=== PATIENT | male | born 1965 | race Caucasian/White ===

== ENCOUNTER 2025-03-01 13:34 | Observation (INO) ==
--- NOTE | 2025-03-01 13:45 | Emergency Department Note ---
Impression & Plan Hypoglycemia, Hypomagnesemia, Lung mass ED Provider Note NAME: GE GORMAN AGE: 59 SEX: M : 1965 ARRIVES VIA: Ambulance INFORMANT: Patient, ED PROVIDER(S): Ge Bell DO CHIEF COMPLAINT: Hypoglycemia HPI: The patient is a 59-year-old male who presented to the emergency department for an evaluation of hyperglycemia. The patient is currently residing at [facility] for alcohol rehab. The patient had an episode of low blood sugar. He does take insulin for his diabetes. The patient states that he has been having changes to his insulin orders as well as his metformin. The patient states he has been eating is normally. He was given oral glucose at the rehab facility. Blood sugar was improved. The patient significantly improved his symptoms but was still sent to the emergency department for further evaluation. The patient denies having any chest pain or difficulty breathing. He denies having any GI bleeding. ROS: See above HPI for pertinent positives & negatives. A total of 10 systems reviewed and were otherwise negative. PAST MEDICAL HISTORY: See Below PAST SURGICAL HISTORY: See Below FAMILY HISTORY: See Below SOCIAL HISTORY: See Below HOME MEDICATIONS: See Below ALLERGIES: See Below VITALS: See Below PHYSICAL EXAMINATION: GENERAL: Patient is awake alert in no acute distress patient is resting comfortably and showing no signs of anxiety EYES: The conjunctivae are clear. The pupils are round and reactive. EARS, NOSE, MOUTH AND THROAT: The nose is without any evidence of any deformity. NECK: The neck is nontender and supple. RESPIRATORY: Normal respiratory effort is noted there is no evidence of wheezing rhonchi or rales CARDIOVASCULAR: Regular rate and rhythm noted there no murmurs rubs or gallops normal S1 normal S2. GASTROINTESTINAL: The abdomen is soft. Abdomen is nontender. MUSCULOSKELETAL/EXTREMITIES: There is no evidence of gross deformity full range of motion is noted in the hips and shoulders. SKIN: There is no obvious evidence of any rash. There are no petechiae, pallor or cyanosis noted. NEUROLOGIC: Patient is awake alert and oriented x3 MEDICAL DECISION MAKING: The patient is a 59-year-old male who presented to the emergency department for an evaluation of low blood sugar. The patient was found of low blood sugar and [facility]. He does have a history of insulin-dependent diabetes. The patient was sent to the emergency ferment for further evaluation. The patient was fed a meal in the emergency department. He was reevaluated multiple times. I discussed the patient's laboratory and radiographic studies with him. Ultimately he was found to have normal mentation. He was found to have an elevated blood sugar on reevaluation which I feel is good given his recent hypoglycemia. He was also found to have a pulmonary abnormality on chest x-ray. After discussion with the radiologist CAT scan of the chest was ordered for further evaluation. The CT read was still pending at change of shift. Patient was signed out to Dr. Peres at change of shift. I do feel the patient would likely be a good candidate for outpatient management of this nodule. He denies any risk factors for tuberculosis or history of tuberculosis. He said no hemoptysis or pulmonary issues. He does have a history of tobacco use. Triage Nursing notes reviewed. Prior medical records reviewed Vital Signs: reviewed and remarkable for no significant abnormalities Differential diagnosis: Infection, dehydration, metabolic abnormality, hypo/hyperglycemia, electrolyte disturbance, anemia, hypoxia, cardiac sources, intracerebral event, toxicologic, neurologic, as well as other pathologies. ER treatment provided: See below Diagnostics interpreted by me: ECG: EKG was obtained in the emergency department. My interpretation is normal sinus rhythm at 92 bpm. There is no ectopy. There is no acute ST segment abnormalities noted. QTc was 450 ms. Cardiac Monitoring: An order was placed for continuous cardiac monitoring. The monitor shows a rate of 97 bpm with sinus rhythm. Laboratory studies: As stated above and show below. Imaging studies: See below. Radiographic imaging was reviewed by myself Consultation(s): none Past Med/Surg History Problem List (Updated 03/01/25 @ 14:58 by Ge Bell DO) Lung mass (Acute) Hypomagnesemia (Acute) Hypoglycemia (Acute) Medical History Alcohol abuse Diabetes Social History Smoking Status: Former smoker Feels Safe at Home: Yes Results & Data (ED) Vital Signs Vital Signs - 24 hr 03/01/25 13:24 03/01/25 13:24 03/01/25 13:40 Temperature 37.0 C Temperature Source Oral Pulse Rate 97 H 99 H Respiratory Rate 20 Blood Pressure 115/75 Blood Pressure Mean 88 Pulse Oximetry 94 Oxygen Delivery Method Room Air Sepsis Recent Fever Within 48 Hours No Sepsis New/Unexplained Change in Mental Status No Sepsis Action Taken by Nursing No Action Required 03/01/25 14:00 03/01/25 14:07 Temperature Temperature Source Pulse Rate 97 H Respiratory Rate 22 Blood Pressure 131/67 Blood Pressure Mean 97 Pulse Oximetry 94 95 Oxygen Delivery Method Room Air Sepsis Recent Fever Within 48 Hours Sepsis New/Unexplained Change in Mental Status Sepsis Action Taken by Long Term Medications Current Medication List: was personally reviewed by me Laboratory Data Attestation: I reviewed the patient's lab results. 03/01/25 13:47 03/01/25 13:47 Lab Results 03/01/25 03/01/25 03/01/25 Range/Units 13:39 13:47 14:58 WBC 6.92 (4.8-10.8) K/ul RBC 4.07 L (4.70-6.10) M/uL Hgb 12.7 L (14.0-18.0) g/dl Hct 38.1 L (42.0-52.0) % MCV 93.6 (80.0-100.0) fL MCH 31.2 (25.0-34.0) pg MCHC 33.3 (32.0-36.0) g/dL RDW Std Deviation 45.8 (36.4-46.3) fL RDW Coeff of Waqas 13.2 (11.5-14.5) % Plt Count 180 (130-400) K/uL MPV 11.4 (9.4-12.4) fL Immature Gran % (Auto) 0.7 % Neut % (Auto) 67.6 % Lymph % (Auto) 19.1 % Weber % (Auto) 7.5 % Eos % (Auto) 4.5 % Baso % (Auto) 0.6 % Neut # (Auto) 4.68 (1.40-6.50) K/uL Lymph # (Auto) 1.32 (1.20-3.40) K/uL Weber # (Auto) 0.52 (0.11-0.59) K/uL Eos # (Auto) 0.31 (0.00-0.50) K/uL Baso # (Auto) 0.04 (0.00-0.20) K/uL Immature Gran # (Auto) 0.05 (0.01-0.20) K/uL Sodium 134 L (136-145) mmol/L Potassium 4.7 (3.5-5.1) mmol/L Chloride 103 (98-107) mmol/L Carbon Dioxide 22 (21-32) mmol/L Anion Gap 9 (3-11) BUN 14 (6-23) mg/dl Creatinine 1.21 (0.6-1.4) mg/dl Est Cr Clr Drug Dosing 64.4 ml/min eGFR 69.40 BUN/Creatinine Ratio 11.6 (10-20) Glucose 287 H (70-99(Fasting)) mg/dl POC Glucose 291 H (70-99) mg/dl Calcium 9.2 (8.6-10.3) mg/dl Magnesium 1.5 L (1.7-2.4) mg/dl Total Bilirubin 0.3 (0.2-1.0) mg/dl AST 20 (13-39) U/L ALT 21 (7-52) U/L Alkaline Phosphatase 64 (34-104) U/L Total Creatine Kinase 133 (30-223) U/L Troponin I High Sens 3.0 (0-20) pg/ml Total Protein 6.8 (6.0-8.3) gm/dl Albumin 4.2 (3.4-5.0) gm/dl Globulin 2.6 (2.5-4.0) gm/dl Albumin/Globulin Ratio 1.6 (0.9-2) TSH 1.383 (0.300-4.500) uIu/ml Urine Color Yellow Urine Appearance Clear (Clear) Urine pH 5.5 (4.5-7.5) Ur Specific [place] 1.020 (1.000-1.030) Urine Protein Negative (Negative) Urine Glucose (UA) 3+ H (Negative) Urine Ketones Negative (Negative) Urine Blood Negative (Negative) Urine Nitrite Negative (Negative) Urine Bilirubin Negative (Negative) Urine Urobilinogen Negative (Negative) Ur Leukocyte Esterase Negative (Negative) Urine Comment Administered Medications Discontinued Medications Ioversol (Optiray 320 100ml) 90 ml IV ONCE ONE Stop: 03/01/25 15:11 Last Admin: 03/01/25 15:11 Dose: 90 ml Documented By: MCKAYLA Magnesium Oxide (Magnesium Oxide 400 Mg Tab) 400 mg PO ONE ONE Stop: 03/01/25 14:39 Last Admin: 03/01/25 14:52 Dose: 400 mg Documented By: KENYON Imaging Data Attestation: I personally reviewed and interpreted this imaging study as follows: My Impression: 1 view chest x-ray was obtained in the emergency department. My interpretation is no free air or definite infiltrate, final report below. Radiologist's Impression: Chest X-Ray 03/01/25 13:40 XR chest 1V portable CLINICAL HISTORY: weakness COMPARISON STUDY: No previous studies for comparison. FINDINGS: Lung volumes are normal. No pneumothorax or pleural effusion is present. There is no evidence for pulmonary edema. Linear left basilar density favors atelectasis. Asymmetric right apical subpleural opacity is present. Cardiac size is normal. Mediastinal contours are normal. Right humeral internal fixation is partially imaged. IMPRESSION: Asymmetric right apical subpleural opacity. This may represent pneumonia or scarring. However, a chest CT is recommended to exclude a pulmonary lesion. ACT 112: Positive. There are findings on this exam that require communication between the performing entity and the patient following Patient Test Result Information Act ([place] Act 112) guidelines. Electronically signed by: Chris Thomas M.D. 03/01/2025 2:06 PM Discharge Plan Visit Data Chief Complaint: Hypoglycemia ED Provider: Ge Bell Discharge Problem: Hypoglycemia, Hypomagnesemia, Lung mass Patient Disposition: Still a Patient Condition: Good Discharge Instructions [place]/Other Patient Handouts: ED HYPOGLYCEMIA Insulin Rxn Activity Restrictions/Additional Instructions: Continue all medications as prescribed. Continue to eat all your meals. Continue to keep snacks with you in case you feel the symptoms of low blood sugar coming on. Be sure to follow-up with your family doctor about the findings on the CAT scan today. You may require further pulmonary workup or possibly a biopsy to further evaluate the cause your symptoms. Return immediately if symptoms change worsen or the need arises. Forms Stand Alone Forms: [facility], Important Visit Information Referrals Referrals: PCP,NO [Physician] -
[2025-03-01 14:02] LABS: Hematocrit (blood only) 38.1 % (42.0-52.0); Hemoglobin 12.7 g/dl (14.0-18.0); Immature Granulocytes # (auto) 0.05 K/uL (0.01-0.20); Immature Granulocytes % (auto) 0.7 %; Mean Corpuscular Hemoglobin 31.2 pg (25.0-34.0); Mean Corpuscular Volume 93.6 fL (80.0-100.0); Platelet Count 180 K/uL (130-400); RDW Standard Deviation 45.8 fL (36.4-46.3); Red Blood Count 4.07 M/uL (4.70-6.10); White Blood Count 6.92 K/ul (4.8-10.8)
--- NOTE | 2025-03-01 14:08 | XRay Report ---
XR chest 1V portable CLINICAL HISTORY: weakness COMPARISON STUDY: No previous studies for comparison. FINDINGS: Lung volumes are normal. No pneumothorax or pleural effusion is present. There is no eviden ce for pulmonary edema. Linear left basilar density favors atelectasis. Asymmetric right apical subpl eural opacity is present. Cardiac size is normal. Mediastinal contours are normal. Right humeral inte rnal fixation is partially imaged. IMPRESSION: Asymmetric right apical subpleural opacity. This may represent pneumonia or scarring. Ho wever, a chest CT is recommended to exclude a pulmonary lesion. ACT 112: Positive. There are findings on this exam that require communication between the performing entity and the patient following Patient Test Result Information Act ([place] Act 112) guidelines. Electronically signed by: Chris Thomas M.D. 03/01/2025 2:06 PM
[2025-03-01 14:26] LABS: Alanine Aminotransferase 21.0 U/L (7-52); Albumin Globulin Ratio 1.6 (0.9-2); Albumin Level 4.2 gm/dl (3.4-5.0); Alkaline Phosphatase 64.0 U/L (34-104); Anion Gap 9.0 (3-11); Bilirubin,Total 0.3 mg/dl (0.2-1.0); Blood Urea Nitrogen 14.0 mg/dl (6-23); Calcium 9.2 mg/dl (8.6-10.3); Carbon Dioxide 22.0 mmol/L (21-32); Chloride 103.0 mmol/L (98-107); Creatine Kinase 133.0 U/L (30-223); Creatinine Clr Calc Pharmacy 64.4 ml/min; Globulin 2.6 gm/dl (2.5-4.0); Glucose 287.0 mg/dl (70-99(Fasting)); Magnesium 1.5 mg/dl (1.7-2.4); Potassium 4.7 mmol/L (3.5-5.1); Sodium 134.0 mmol/L (136-145); Total Protein 6.8 gm/dl (6.0-8.3)
[2025-03-01 14:42] LABS: Thyroid Stimulating Hormone 1.383 uIu/ml (0.300-4.500)
[2025-03-01] MEDS: MAGNESIUM OXIDE 400 MG TAB PO ONE (14:52)
[2025-03-01] MEDS: OPTIRAY 320 100ml IV ONE (15:11)
[2025-03-01 15:21] LABS: Appearance Urine Clear (Clear); Glucose Urine UA 3+ (Negative)
--- NOTE | 2025-03-01 15:59 | Emergency Department Note ---
ED Visit Note Patient is a 59-year-old male who sent over by [facility] for confusion. He was found to be hypoglycemic and have a chest x-ray which has had an abnormality in the right upper lobe. CT was recommended. CT was obtained and pending upon signout. Cavitary lesions and concern for aspiration after discussion with pulmonology. Recommended admission and IV antibiotics. Discussed case with the hospitalist for further evaluation management treatment. Patient was extremely upset and cursing as he wanted to go back to [facility]. He did not want to stay. [facility] cannot take him back without having him evaluated by pulmonology. Patient was agreeable to admission following this. .
--- NOTE | 2025-03-01 16:26 | CT Scan Report ---
Exam: CT chest diagnostic with contrast. Reason for exam: Right upper lobe mass. Previous studies: None. FINDINGS: No previous studies are available for comparison. There is a cavitating peripheral process in the apical segment right upper lobe extending near to the right lateral and posterior pleural surface. The multilocular cavitation is present centrally in this lesion. The broadest diameter is at the pleural base measuring approximately 5.1 cm diameter. Underlying emphysematous COPD is present. Prquypfo-fw-gugkzu linear atelectasis/fibrosis are seen in both lower lobes. No active pleural effusion. Pneumothorax is seen. No suspicious abnormal hilar or mediastinal mass or abnormal adenopathy is seen. No significant aneurysm or dissection seen. Mild coronary artery calcifications are present. No acute bony process is seen. IMPRESSION: 1. Suspicious multilocular cavitating pleural-based process in the right lung apex. Unfortunately no previous studies available to evaluate the stability of this lesion. It could indicate cavitary malignant neoplasm. The possibility of cavitating granulomatous disease/tuberculosis lung disease. He is considered as well. Inflammatory or autoimmune cavitating disease is considered but is felt less likely. 2. Definitive diagnosis with pulmonary medicine follow-up and consideration for biopsy is recommended. PET/CT will also be anticoagulated to evaluate the metabolic activity within the lesion. 3. Emphysematous COPD. Electronically signed by Serafin Umanzor 03-01-2025 4:25 PM
[2025-03-01] MEDS ORDERED: VANCOMYCIN CONSULT ACTIVE PRN (17:20)
[2025-03-01] MEDS: NICOTINE 21 MG/24 HR TDSY TD SCH (18:11)
[2025-03-01] MEDS: PIPERACILLIN/TAZOBACTAM 4.5 GM/100 ML BAG IV ONE (18:12)
[2025-03-01] MEDS: VANCOMYCIN HCL 1,500 MG in SODIUM CHLORIDE 0.9% 500 ML IV ONE (18:46)
[2025-03-01] MEDS ORDERED: GLUCOSE 10 TAB/TUBE PO PRN (18:50)
[2025-03-01] MEDS ORDERED: CARBOHYDRATES FOR HYPOGLYCEMIA PO PRN (18:50)
[2025-03-01] MEDS ORDERED: DEXTROSE 50% 50 ML SYRINGE IV PRN (18:50)
[2025-03-01] MEDS ORDERED: ONDANSETRON INJ 2 MG/ML 2 ML VIAL IV PRN (18:50)
[2025-03-01] MEDS ORDERED: PHARMACY GLYCEMIC MGMT CONSULT PRN (18:50)
[2025-03-01] MEDS ORDERED: MAGNESIUM HYDROXIDE SUSP 30 ML UDC PO PRN (18:50)
[2025-03-01] MEDS ORDERED: GLUCAGON FOR INJ 1 MG VIAL SQ PRN (18:50)
[2025-03-01] MEDS ORDERED: POLYETHYLENE (MIRALAX) 17 GM PACK PO PRN (18:50)
[2025-03-01] MEDS ORDERED: ALUMINUM/MAGNESIUM SUSP 30 ML UDC PO PRN (18:50)
[2025-03-01] MEDS ORDERED: GLUCOSE 40% GEL 15 GM TUBE PO PRN (18:50)
[2025-03-01] MEDS ORDERED: ACETAMINOPHEN 325 MG TAB PO PRN (18:50)
--- NOTE | 2025-03-01 19:01 | History & Physical Report ---
Date of Service March 01, 2025 Assessment & Plan (1) Lung mass: Plan Possible aspiration pneumonia Right lung fracture cavitary lesion, rule out malignancy Patient reports night sweats for a long time, denies fever/increasing cough or sputum production. ED physician discussed with pulmonology, plan for admission and IV antibiotic. Admitting CT chest reviewed. Continue with Zosyn and vancomycin, pulmonology consult placed. Hypomagnesemia: Admitting magnesium of 1.5, replete. Magnesium levels in AM. Hypoglycemia: Patient noted to be hypoglycemic associated with weakness and sickness prior to arrival, sliding scale insulin while in hospital, A1c in a.m., glycemic pharmacy consult. Hypoglycemia now resolved. Tobacco abuse: Nicotine patch, patient counseled regarding tobacco cessation. He states he will contemplate about it. Other chronic medical conditions: Anxiety, GERD, T2DM: continue with/resume home meds as and when able. DVT prophylaxis: Heparin subcu Full History of Present Illness Chief Complaint: Hypoglycemia Primary Care Provider: [facility] 59-year-old man with PMH of hypoglycemia, T2DM, anxiety, chronic pancreatitis, GERD presents to the ED from [facility] due to altered mentation and hypoglycemia episodes at [facility]. Patient's blood glucose was 45, patient was noted to be shaky and weak and given orange juice and sugar tablets and patient started to slowly improve. Patient reports he was back to his baseline mentation by the time he reached to the ED. In the ED he got chest x-ray which showed abnormal right upper lung finding and hence he underwent CT scan of the lung which showed multilocular cavitary lesion in the right lung apex ?malignancy. ED physician spoke with pulmonology who recommended admission and treatment in the line of aspiration pneumonia. Patient denies fever/sore throat/chest pain/palpitation/belly pain/nausea/vomiting/diarrhea/pain or burning while passing urine. Patient reports gaining weight since he has quit drinking about 6 weeks ago. He has been in alcoholic rehab at [facility] since 6 weeks. Patient reports having night sweats for a long time now. Patient reports chronic cough at his baseline with clear mucus, denies frequency or consistency changes. Patient reports smoking 1 packs a day, agrees to nicotine patch. Denies alcohol intake since last 6 weeks, denies recreational drug use. Medications reviewed with the patient at bedside. Plan of care discussed with the patient in detail, he voiced understanding. Full code Allergies Allergy/AdvReac Type Severity Reaction Status Date / Time shellfish derived Allergy Severe Swelling Unverified 03/01/25 16:19 of Lip/Tongue/Throat Home Medications Medication Instructions Recorded Confirmed Type buspirone 15 mg tablet 15 mg PO TID 03/01/25 03/01/25 History clonidine HCl 0.1 mg tablet 0.1 mg PO TID PRN Anxiety 03/01/25 03/01/25 History fluticasone fur. 100 mcg-umeclid 1 inh inhalation DAILY 03/01/25 03/01/25 History 62.5 mcg-vilant 25 mcg inhalat.powder (Trelegy Ellipta) gabapentin 300 mg capsule 300 mg PO TID 03/01/25 03/01/25 History hydroxyzine pamoate 50 mg capsule 50 mg PO TID PRN Anxiety 03/01/25 03/01/25 History insulin aspart U-100 100 unit/mL 1 sliding scale dose subcut 03/01/25 03/01/25 History subcutaneous solution (Novolog TIDWMEAL U-100 Insulin aspart) insulin glargine 100 unit/mL 8 unit subcut BID 03/01/25 03/01/25 History subcutaneous solution (Lantus U-100 Insulin) glykwl-bdufbakf-kwzgepe 1 cap PO QID 03/01/25 03/01/25 History 36,000-114,000-180,000 unit capsule,delay rel (Creon) metformin 500 mg tablet,extended 500 mg PO TID 03/01/25 03/01/25 History release 24 hr multivitamin 1 tab PO DAILY 03/01/25 03/01/25 History omeprazole 40 mg capsule,delayed 40 mg PO DAILY 03/01/25 03/01/25 History release quetiapine 50 mg tablet (Seroquel) 50 mg PO HS 03/01/25 03/01/25 History sertraline 100 mg tablet 100 mg PO DAILY 03/01/25 03/01/25 History Past Med/Surg History Problem List (Updated 03/01/25 @ 14:58 by Jr Bell DO) Lung mass (Acute) Hypomagnesemia (Acute) Hypoglycemia (Acute) Medical History Alcohol abuse Diabetes Social History Smoking Status: Former smoker Feels Safe at Home: Yes Review of Systems Review of Systems: Negative otherwise mentioned in HPI. Physical Exam Physical Exam: GENERAL: Alert and oriented x3. NAD, on RA. HEENT: No pallor, no icterus. Pupils equal, round and reactive to light. Oral mucosa moist. NECK: No JVD, no neck masses. HEART: S1 and S2 heard. Regular rate and rhythm. No murmur, no gallop. RESPIRATORY SYSTEM: Normal AP diameter. No accessory muscle use. No wheezing, no crackles. ABDOMEN: Soft, bowel sounds present, nontender, no distention. CENTRAL NERVOUS SYSTEM: No facial droop. Speech is clear. Obeys simple commands. Moves extremities. EXTREMITIES: No edema, no erythema seen. Results & Data Results & Data Vital Signs (Past 12 Hours) Vital Signs Temp Pulse Pulse Resp BP BP Pulse Ox 03/01/25 18:20 88 16 150/91 H 93 03/01/25 17:00 82 18 121/86 92 03/01/25 16:27 83 20 121/79 93 03/01/25 14:07 95 03/01/25 14:00 97 H 22 131/67 94 03/01/25 13:40 99 H 03/01/25 13:24 03/01/25 13:24 37.0 C 97 H 20 115/75 94 O2 Del Method 03/01/25 18:20 Room Air 03/01/25 17:00 03/01/25 16:27 Room Air 03/01/25 14:07 Room Air 03/01/25 14:00 03/01/25 13:40 03/01/25 13:24 Room Air 03/01/25 13:24
[2025-03-01] MEDS: MAGNESIUM SULFATE / D5W 1 GM/100 ML BAG IV SCH (22:11)
[2025-03-01] MEDS: NICOTINE POLACRILEX 2 MG GUM MT PRN (22:37)
[2025-03-01] MEDS: LANTUS PER UNIT CHARGE SQ SCH (22:37)
[2025-03-01] MEDS: INSULIN ASPART PER UNIT CHARGE SC SCH (22:37)
[2025-03-01] MEDS: GABAPENTIN 300 MG CAP PO SCH (22:57)
[2025-03-01] MEDS: busPIRone 15 MG TAB PO SCH (22:57)
[2025-03-01] MEDS: PIPERACILLIN/TAZOBACTAM 4.5 GM/100 ML BAG IV SCH (22:57)
[2025-03-01] MEDS: HEPARIN SOD 5,000 UNIT/0.5 ML VIAL SQ SCH (23:30)
--- NOTE | 2025-03-02 01:20 | Pharmacy Report ---
Pharmacy PK ABX Note - Date of Service March 02, 2025 - Assessment and Plan Assessment 59 year old M receiving vancomycin/Zosyn for treatment of CAP-possible aspiration. Pertinent microbiologic data includes: MRSA Nasal Swab pending. Day # 1 of antimicrobial therapy. Plan Vancomycin * Loading dose: 1500 mg IV x 1 * Maintenance dose: 750 mg IV every 12 hours * Regimen is predicted to achieve target AUC/KATHIE of 400-600 mg/L.hr * Trough level ordered for: 03/03/25 @ 0430 Pharmacy will continue to follow and will adjust dose/frequency as necessary. Thank you. Pharmacy has transitioned to AUC monitoring for vancomycin. AUC/KATHIE is the preferred PK/PD target and is associated with decreased risk of nephrotoxicity compared to traditional trough targets.
[2025-03-02] MEDS: VANCOMYCIN 750 MG in SODIUM CHLORIDE 0.9% 250 ML IV SCH ×2 (05:20→13:09)
[2025-03-02 07:19] LABS: Hematocrit (blood only) 39.6 % (42.0-52.0); Hemoglobin 13.9 g/dl (14.0-18.0); Mean Corpuscular Hemoglobin 32.4 pg (25.0-34.0); Mean Corpuscular Volume 92.3 fL (80.0-100.0); Platelet Count 171 K/uL (130-400); RDW Standard Deviation 44.7 fL (36.4-46.3); Red Blood Count 4.29 M/uL (4.70-6.10); White Blood Count 7.48 K/ul (4.8-10.8)
[2025-03-02] MEDS: ADVANCED PROBIOTIC 625 MG CAPSULE PO SCH (07:29)
[2025-03-02] MEDS: PANCREAZE (LIPASE 16,800U) CAP PO SCH (07:29)
[2025-03-02] MEDS: SERTRALINE HCL 100 MG TABLET PO SCH (07:30)
[2025-03-02] MEDS: UMECLIDINIUM/VILANTEROL 62.5/25MCG 7 PUFFS/INHALER INH SCH (07:30)
[2025-03-02] MEDS: FLUTICASONE FUROATE 100MCG 14 PUFFS/INHALER INH SCH (07:31)
[2025-03-02] MEDS: MULTIVITAMIN TAB PO SCH (07:31)
[2025-03-02] MEDS: REMOVE NICODERM PATCH SCH (07:39)
[2025-03-02 07:43] LABS: Anion Gap 7 (3-11); Blood Urea Nitrogen 11 mg/dl (6-23); Calcium 8.8 mg/dl (8.6-10.3); Carbon Dioxide 26 mmol/L (21-32); Chloride 105 mmol/L (98-107); Creatinine Clr Calc Pharmacy 96.2 ml/min; Glucose 166 mg/dl (70-99(Fasting)); Magnesium 2.0 mg/dl (1.7-2.4); Potassium 4.0 mmol/L (3.5-5.1); Sodium 138 mmol/L (136-145)
[2025-03-02] MEDS ORDERED: NON-FORMULARY MEDICATION (Fluticasone-Umeclidin-Vilanter [Trelegy Ellipta] 100-62.5-25 mcg INH SCH (09:00)
[2025-03-02 09:10] LABS: Hemoglobin A1C 9.7 % (4.5-5.6)
--- NOTE | 2025-03-02 10:08 | Hospitalist Progress Note ---
Date of Service March 02, 2025 Assessment & Plan (1) Lung mass: Plan Possible aspiration pneumonia Right lung fracture cavitary lesion, rule out malignancy Patient reports night sweats for a long time, denies fever/increasing cough or sputum production. ED physician discussed with pulmonology, plan for admission and IV antibiotic. Admitting CT chest reviewed. Continue with Zosyn and vancomycin, pulmonology consult placed. 03/02 afebrile, on room air continue IV Zosyn, vancomycin Awaiting evaluation by pulmonology service Hypomagnesemia: Admitting magnesium of 1.5, replete. Magnesium levels in AM. Hypoglycemia: Patient noted to be hypoglycemic associated with weakness and sickness prior to arrival, sliding scale insulin while in hospital, A1c in a.m., glycemic pharmacy consult. Hypoglycemia now resolved. 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 He states he will contemplate about it. Other chronic medical conditions: Anxiety, GERD, T2DM: continue with/resume home meds as and when able. DVT prophylaxis: Heparin subcu Full Disposition resident of [facility] rehab Admission and Anticipated Discharge Date Admission Date: March 01, 2025 Subjective seen resting in bed, comfortable, not in distress States he feels fine overall has occasional cough with clear sputum no chest pain, shortness of breath No other new symptoms Review of Systems Review of Systems: all noted and negative except for above Physical Exam Physical Exam: General- oriented x 3, not in distress, speaks in sentences with no effort or accessory muscle use Eyes- anicteric Neck- no JVD Lungs- clear breath sounds bilaterally, no rales/wheezes Heart- normal rate, regular rhythm; no murmurs Abdomen- normal bowel sounds, nondistended, soft, nontender Extremities- no pretibial edema, no calf tenderness Neuro- alert, oriented x 3; no gross focal neurologic deficits Skin- warm & dry Results & Data Results & Data Vital Signs (Past 12 Hours) Vital Signs Temp Pulse Resp BP Pulse Ox O2 Del Method 03/02/25 08:00 36.8 C 92 H 16 109/69 91 Room Air 03/02/25 03:08 36.7 C 69 16 108/68 94 Room Air 03/01/25 22:16 36.8 C 75 18 124/73 94 Room Air all noted and reviewed including below
--- NOTE | 2025-03-02 12:26 | Electrocardiogram Report ---
Test Reason : Blood Pressure : */* mmHG Vent. Rate : 92 BPM Atrial Rate : 92 BPM P-R Int : 144 ms QRS Dur : 70 ms QT Int : 336 ms P-R-T Axes : -6 -11 -13 degrees QTcB Int : 415 ms Normal sinus rhythm Inferior infarct , age undetermined Abnormal ECG No previous ECGs available Confirmed by Jr Funk ([id number]) on 03/02/2025 12:25:36 PM Referred By: Confirmed By: Jr Funk
--- NOTE | 2025-03-02 12:30 | Pulmonary Consultation ---
Date of Consultation March 02, 2025 Assessment & Plan (1) Cavitary lesion of lung: (2) COPD (chronic obstructive pulmonary disease) with emphysema: (3) Tobacco abuse: Plan Patient is a 59-year-old male with a history of extensive tobacco use (80-[id number]-kicy history), COPD with emphysema on Trelegy and albuterol inhalers at home, history of incarceration in 2020 for 6 months, alcohol abuse in remission. The patient presented to the hospital with hypoglycemia. X-ray of the chest showed a right apical density for which a CT of the chest was obtained. CT showed a right apical cavitary lesion for which pulmonary has been consulted. Problem list: Right apical cavitary lung lesion COPD/emphysema without acute exacerbation Heavy tobacco use history Recommendation/plan: I reviewed the CT imaging. Given the patient's history and location of the lesion TB has to be ruled out. TB Gold has been ordered, will hopefully return by tomorrow. The lesion could represent TB versus malignancy. I discussed the imaging findings with the patient. He is interested in pursuing repeat imaging versus bronchoscopy with biopsy if TB is ruled out. He does not want to stay in the hospital too long however as he is finishing up his rehab currently. He is willing to follow-up in clinic however. The patient denies any acute respiratory symptoms, denies wheezing or phlegm production. Denies fevers or chills. Besides the right apical lesion and some mild GGO's in the lower lung zones I do not see any other focal consolidations. Does not seem to be in COPD exacerbation. Inflammatory markers are low, patient is not experiencing any respiratory symptoms, can likely stop antibiotics. Recommend nicotine counseling and supplementation. Continue airborne precautions for now. Thank you for this consult. Will continue to follow along with you. History of Present Illness Reason for Consultation: Right apex cavitary lesion Requesting Physician: Alejo Merritt MD Attending Physician: Arthur Kelly MD History of Present Illness Patient is a 59-year-old male who presented to the emergency department on 03/01/2025 for evaluation of hypoglycemia. His past medical history is significant for alcohol use disorder for which he is in a sober living facility currently, COPD, active tobacco use (19-[id number]-[id number] history), type 2 diabetes on insulin, history of hepatitis B and previous incarceration in 2020. In the ER a chest x-ray was obtained which showed a right apical subpleural opacity and a CT of the chest was recommended. CT chest without contrast showed significant emphysema, a suspicious multiloculated cavitary pleural-based process in the right lung apex. The patient was admitted to the [facility] and placed on airborne precautions. Pulmonary was consulted for the right apex cavitary lesion. On examining the patient he is resting comfortably on room air. He denies any respiratory symptoms. He endorses a history of COPD for which he uses a Trelegy and as needed albuterol inhaler at home. He actively smokes tobacco 1 pack/day. He has smoked since he is 13 years old. He denies any known history of TB exposure. He denies any international travel. He does endorse a 6-month incarceration in 2020 but he says he has had negative TB skin test since that time. He denies any immune deficiency or known HIV. Denies fevers, chills, night sweats, weight loss, phlegm production or hemoptysis. He says that he has been hospitalized in the past few years for pneumonia [place]. He has no recollection of having a previous pulmonary nodule. I reviewed the CT imaging. Unfortunately there are no previous images to refer to. There is significant emphysema, more prominent in the upper lobes. There is a cavitary lesion in the right apex. No other suspicious pulmonary lesions appreciated. Some GGO's with atelectasis in the bases. Allergies Allergy/AdvReac Type Severity Reaction Status Date / Time shellfish derived Allergy Severe Swelling Unverified 03/01/25 16:19 of Lip/Tongue/Throat Home Medications Medication Instructions Recorded Confirmed Type buspirone 15 mg tablet 15 mg PO TID 03/01/25 03/01/25 History clonidine HCl 0.1 mg tablet 0.1 mg PO TID PRN Anxiety 03/01/25 03/01/25 History fluticasone fur. 100 mcg-umeclid 1 inh inhalation DAILY 03/01/25 03/01/25 History 62.5 mcg-vilant 25 mcg inhalat.powder (Trelegy Ellipta) gabapentin 300 mg capsule 300 mg PO TID 03/01/25 03/01/25 History hydroxyzine pamoate 50 mg capsule 50 mg PO TID PRN Anxiety 03/01/25 03/01/25 History insulin aspart U-100 100 unit/mL 1 sliding scale dose subcut 03/01/25 03/01/25 History subcutaneous solution (Novolog TIDWMEAL U-100 Insulin aspart) insulin glargine 100 unit/mL 8 unit subcut BID 03/01/25 03/01/25 History subcutaneous solution (Lantus U-100 Insulin) fguxgq-itwqnlba-cznjnem 1 cap PO QID 03/01/25 03/01/25 History 36,000-114,000-180,000 unit capsule,delay rel (Creon) metformin 500 mg tablet,extended 500 mg PO TID 03/01/25 03/01/25 History release 24 hr multivitamin 1 tab PO DAILY 03/01/25 03/01/25 History omeprazole 40 mg capsule,delayed 40 mg PO DAILY 03/01/25 03/01/25 History release quetiapine 50 mg tablet (Seroquel) 50 mg PO HS 03/01/25 03/01/25 History sertraline 100 mg tablet 100 mg PO DAILY 03/01/25 03/01/25 History Patient History Medical History Alcohol abuse Diabetes Social History Smoking Status: Current every day smoker Tobacco Type: Cigarettes Cigarettes Per Day: 20; Second Hand Exposure: No; Do You Dip or Chew Tobacco: No; Tobacco Cessation Education Requested by Patient: No Hx Alcohol Use: Yes Alcohol type: beer Hx Substance Use: No Preferred Language: Greek Communication Ability: Effective Early Intervention School Psychologist Required: No Beliefs That Will Affect Care: None Current Living Situation: Rehab Current Living Situation Comment: rehab at [facility] Other Information That Helps Us Care for You: No Feels Safe at Home: Yes Safety Concerns: Feels Safe At This Time Assistive Devices: Denture - Upper Review of Systems Review of Systems: A 12 point review of systems was obtained in detail. Negative except as noted in HPI. Physical Exam Physical Exam: Physical examination: General: Well-appearing, well-nourished and not in acute distress. HEENT: Normocephalic, atraumatic. Extraocular movements intact. Sclera are nonicteric. No JVD appreciated. Skin: Warm and dry. No rashes appreciated. No jaundice appreciated. Multiple tattoos present. Cardiovascular: Heart is a regular rate and rhythm, no murmurs appreciated on my exam. No significant lower extremity edema. Lungs: Clear bilaterally, no wheezing appreciated. No crackles. Nontachypneic. Resting comfortably on room air. Abdomen: Nondistended, nontender to palpation. No masses appreciated. Musculoskeletal: Normal muscle mass and tone. No gross joint deformity abnormalities. No effusions appreciated. Neurologic: Awake and alert, oriented. CN II through XII are grossly intact. Speech is fluent. Nonfocal exam. Psychiatric: Appropriate cooperative during my exam. Results & Data Results & Data Vital Signs (Past 12 Hours) Vital Signs Temp Pulse Resp BP Pulse Ox O2 Del Method 03/02/25 11:06 36.8 C 74 18 114/71 93 Room Air 03/02/25 08:00 36.8 C 92 H 16 109/69 91 Room Air 03/02/25 03:08 36.7 C 69 16 108/68 94 Room Air [place] [address] IN/OBS CONSULT LVL 3,45M Patient Type New History Detailed Exam Detailed Medical Decision Making Moderate Complexity Diagnoses Cavitary lesion of lung J98.4 COPD (chronic obstructive pulmonary disease) with emphysema J43.9 Tobacco abuse Z72.0
--- NOTE | 2025-03-02 14:52 | Pharmacy Report ---
Pharmacy Glycemic Short Note 2 - Date of Service March 02, 2025 - Glycemic Short BSG Results (Last 24 hours): 03/01/25 03/01/25 03/02/25 20:32 22:04 06:44 Glucose 166 H POC Glucose 166 H 269 H 03/02/25 03/02/25 07:27 11:05 Glucose POC Glucose 164 H 208 H OUTPATIENT ANTIDIABETIC REGIMEN: * Lantus 8 units SQ BID * Novolog sliding scale TID with meal * metformin 500mg PO BID HbA1c: 9.7% on 03/02/25 ASSESSMENT: * Jr is a 59 year old male who presented to the ED due to altered mentation/hypoglycemia (BSG was reportedly 45mg/dL [employer]) and was incidentally found to have a cavitary lesion of the lung. Hypoglycemia resolved once the patient reached the ED and on arrival BSG was 291mg/dL. Pharmacy was consulted at that time for glycemic management. * A conservative insulin regimen was started last evening--Lantus 5 units SQ BID and a weight based bolus insulin regimen with a stress of ~2. * Fasting BSG was 164mg/dL this morning and alvarez to 208mg/dL at lunch. CR was tightened and Lantus was changed to a scale (0 or 5 units depending on BSG) BID to help ensure that he does not have another hypoglycemic episode. Will cautiously increase insulin doses if/as needed. PLAN FOR INPATIENT GLYCEMIC CONTROL: * Hold outpatient oral diabetes medications * Basal insulin * Lantus scale (0 or 5 units depending on BSG) SQ BID * Bolus insulin * NovoLog per scale ACHS or Q6hrs while NPO * Goal Range: Low 120 mg/dL - High 160 mg/dL * Correction Factor: 30 mg/dL/unit * Nutritional / Prandial insulin per carb ratio of 1 unit per 12 grams CHO consumed
[2025-03-02] MEDS: LANTUS PER UNIT CHARGE SC SCH (20:48)
[2025-03-03 04:14] VITALS: RESP 18
[2025-03-03 04:55] LABS: Creatinine Clr Calc Pharmacy 78.7 ml/min
[2025-03-03] MEDS: VANCOMYCIN LEVEL ONE (05:10)
[2025-03-03 11:38] VITALS: BP 116/74; PULSE 66; TEMP 97.7; O2SAT 95
--- NOTE | 2025-03-03 11:40 | Pulmonology Progress Note ---
Date of Service March 03, 2025 Assessment & Plan (1) Cavitary lesion of lung: (2) COPD (chronic obstructive pulmonary disease) with emphysema: (3) Tobacco abuse: Plan Patient is a 59-year-old male with a history of extensive tobacco use (69-wdqt-jpce history), COPD with emphysema on Trelegy and albuterol inhalers at home, history of incarceration in 2020 for 6 months, alcohol abuse in remission. The patient presented to the hospital with hypoglycemia. X-ray of the chest showed a right apical density for which a CT of the chest was obtained. CT showed a right apical cavitary lesion for which pulmonary has been consulted. Right apical cavitary lung lesion possibly TB v. malignancy -Given the patient's history and location of the lesion TB has to be ruled out. TB Gold negative and TB ruled out. -Skin ppd negative -Consider bronchoscopy if/when TB ruled out. Plan for repeat CT 4-6 weeks post discharge. -Discontinue airborne precautions. -On Zosyn and vancomycin. Patient asymptomatic and nontoxic appearing as well as low inflammatory markers can likely d/c antibiotics. COPD/emphysema without acute exacerbation -Does not seem to be in COPD exacerbation. Not bronchospastic. Heavy tobacco use history -Reiterated benefit of smoking cessation and resources offered. Thank you for allowing us to participate in this patients care. Please feel free to reach out with questions or concerns. 36 minutes is the time spent reviewing the chart, obtaining history, performing the physical exam, and updating the patient. Admission and Anticipated Discharge Date Admission Date: March 01, 2025 Subjective Patient feels his breathing is at baseline with occasional cough which produces white phlegm. On room air with SpO2 95% or above. TB Gold Quantiferon pending. Review of Systems 2 Review of Systems: All systems reviewed & are unremarkable except as noted in HPI & below Physical Exam 2 Physical Exam: VITALS: Reviewed. WEIGHT/BMI reviewed. GEN: State age appearing, well-developed, NAD. PSYCH: Good Judgment. AOx3. Normal memory, mood, and affect. HEENT -Head: NC/AT; -Eyes: PERRL, EOMI. No discharge or redn ess; -Ears: External ears are normal. -Nose: Normal nares. NECK: Supple, with no masses. CV: RRR, no m/r/g. LUNGS: CTAB, no w/r/c. ABD: N/A : N/A SKIN: Warm, well perfused. No skin rashes or abnormal lesions. MSK: No deformities, Normal gait. EXT: No clubbing, cyanosis, or edema. NEURO: Ambulating with no limitations. Normal muscle strength and tone. No focal deficits. Results & Data Results & Data Vital Signs (Past 12 Hours) Vital Signs Temp Pulse Resp BP Pulse Ox O2 Del Method 03/03/25 07:38 36.9 C 74 18 104/67 91 Room Air 03/03/25 03:47 36.6 C 72 18 102/67 93 Room Air Laboratory Results 03/02/25 06:44 03/03/25 04:14 Abnormal Lab Results 03/02/25 03/02/25 03/03/25 16:40 20:44 04:14 Creatinine 0.99 Est Cr Clr Drug Dosing 78.7 eGFR 88.30 POC Glucose 277 H 94 Random Vancomycin 11.0 03/03/25 07:36 Creatinine Est Cr Clr Drug Dosing eGFR POC Glucose 260 H Random Vancomycin Diagnostic Findings Chest X-Ray 03/01/25 13:40 XR chest 1V portable CLINICAL HISTORY: weakness COMPARISON STUDY: No previous studies for comparison. FINDINGS: Lung volumes are normal. No pneumothorax or pleural effusion is present. There is no evidence for pulmonary edema. Linear left basilar density favors atelectasis. Asymmetric right apical subpleural opacity is present. Cardiac size is normal. Mediastinal contours are normal. Right humeral internal fixation is partially imaged. IMPRESSION: Asymmetric right apical subpleural opacity. This may represent pneumonia or scarring. However, a chest CT is recommended to exclude a pulmonary lesion. ACT 112: Positive. There are findings on this exam that require communication between the performing entity and the patient following Patient Test Result Information Act ([place] Act 112) guidelines. Electronically signed by: Chris Thomas M.D. 03/01/2025 2:[address] 03/01/25 14:46 Exam: CT chest diagnostic with contrast. Reason for exam: Right upper lobe mass. Previous studies: None. FINDINGS: No previous studies are available for comparison. There is a cavitating peripheral process in the apical segment right upper lobe extending near to the right lateral and posterior pleural surface. The multilocular cavitation is present centrally in this lesion. The broadest diameter is at the pleural base measuring approximately 5.1 cm diameter. Underlying emphysematous COPD is present. [id number] linear atelectasis/fibrosis are seen in both lower lobes. No active pleural effusion. Pneumothorax is seen. No suspicious abnormal hilar or mediastinal mass or abnormal adenopathy is seen. No significant aneurysm or dissection seen. Mild coronary artery calcifications are present. No acute bony process is seen. IMPRESSION: 1. Suspicious multilocular cavitating pleural-based process in the right lung apex. Unfortunately no previous studies available to evaluate the stability of this lesion. It could indicate cavitary malignant neoplasm. The possibility of cavitating granulomatous disease/tuberculosis lung disease. He is considered as well. Inflammatory or autoimmune cavitating disease is considered but is felt less likely. 2. Definitive diagnosis with pulmonary medicine follow-up and consideration for biopsy is recommended. PET/CT will also be anticoagulated to evaluate the metabolic activity within the lesion. 3. Emphysematous COPD. Electronically signed by Serafin Umanzor 03-01-2025 4:25 PM PG Care Time/CCT Total # of Minutes Spent Total Time Spent with Patient: Total time spent is greater than 50% in coordination of care (as documented) at patient's floor/unit and/or counseling patient: Coding Level of Care Code 51173 SUB INP/OBS CARE 2/35MIN Diagnoses Cavitary lesion of lung J98.4 COPD (chronic obstructive pulmonary disease) with emphysema J43.9 Tobacco abuse Z72.0
[2025-03-03 13:20] LABS: Quantiferon TB1 0.050 IU/mL; Quantiferon TB2 0.080 IU/mL
--- NOTE | 2025-03-03 13:42 | Discharge Summary ---
Discharge Summary Date of Service March 03, 2025 Principal Dx & Hospital Course #1 = Principal Diagnosis (1) Lung mass: Plan Possible aspiration pneumonia Right lung fracture cavitary lesion, rule out malignancy Patient reports night sweats for a long time, denies fever/increasing cough or sputum production. ED physician discussed with pulmonology, plan for admission and IV antibiotic. Admitting CT chest reviewed. Continue with Zosyn and vancomycin, pulmonology consult placed. 03/02 afebrile, on room air continue IV Zosyn, vancomycin Awaiting evaluation by pulmonology service 03/03 stable afebrile, on room air evaluated by Pulm Service Dr. Rosangela Celeste: "I reviewed the CT imaging. Given the patient's history and location of the lesion TB has to be ruled out. TB Gold has been ordered, will hopefully return by tomorrow.-> negative The lesion could represent TB versus malignancy. I discussed the imaging findings with the patient. He is interested in pursuing repeat imaging versus bronchoscopy with biopsy if TB is ruled out. He does not want to stay in the hospital too long however as he is finishing up his rehab currently. He is willing to follow-up in clinic however. The patient denies any acute respiratory symptoms, denies wheezing or phlegm production. Denies fevers or chills. Besides the right apical lesion and some mild GGO's in the lower lung zones I do not see any other focal consolidations. Does not seem to be in COPD exacerbation. Inflammatory markers are low, patient is not experiencing any respiratory symptoms, can likely stop antibiotics. Recommend nicotine counseling and supplementation. ff up with Pulmnologist Dr. Rosangela Celeste in 1 week to discuss possible Bronchoscopy and repeat CT chest in 4 weeks Hypomagnesemia: Admitting magnesium of 1.5, replete. Magnesium levels in AM. -- resolved Hypoglycemia: Patient noted to be hypoglycemic associated with weakness and sick ness prior to arrival, sliding scale insulin while in hospital, A1c in a.m., glycemic pharmacy consult. Hypoglycemia now resolved. -- patient reports he takes metformin 3 times daily, Lantus 8 units twice daily, and insulin sliding scale usually 2-10 units does not skips meals hypoglycemia likely secondary to insulin sliding scale no hypoglycemic episodes while admitted so far monitor closely a1c 9.7 -- recommend to loosen insulin sliding scale to prevent hypoglycemia check BSGs 3x a day Mild coronary artery calcifications -- seen on CT chest patient needs to start on ASA 81mg po daily also needs work up for lipid profile, good A1c control, etcc Further work up, management, and ff up as outpatient Tobacco abuse: Nicotine patch, patient counseled regarding tobacco cessation. He states he will contemplate about it. Other chronic medical conditions: Anxiety, GERD, T2DM: continue with/resume home meds as and when able. DVT prophylaxis: Heparin subcu Full Disposition [facility] Notes For Next Care Provider Medication Changes From Visit as per medical reconciliation form Admission HPI Per Admitting Provider 59-year-old man with PMH of hypoglycemia, T2DM, anxiety, chronic pancreatitis, GERD presents to the ED from [facility] due to altered mentation and hypoglycemia episodes at [facility]. Patient's blood glucose was 45, patient was noted to be shaky and weak and given orange juice and sugar tablets and patient started to slowly improve. Patient reports he was back to his baseline mentation by the time he reached to the ED. In the ED he got chest x-ray which showed abnormal right upper lung finding and hence he underwent CT scan of the lung which showed multilocular cavitary lesion in the right lung apex ?malignancy. ED physician spoke with pulmonology who recommended admission and treatment in the line of aspiration pneumonia. Patient denies fever/sore throat/chest pain/palpitation/belly pain/nausea/vomiting/diarrhea/pain or burning while passing urine. Patient reports gaining weight since he has quit drinking about 6 weeks ago. He has been in alcoholic rehab at [facility] since 6 weeks. Patient reports having night sweats for a long time now. Patient reports chronic cough at his baseline with clear mucus, denies frequency or consistency changes. Patient reports smoking 1 packs a day, agrees to nicotine patch. Denies alcohol intake since last 6 weeks, denies recreational drug use. Medications reviewed with the patient at bedside. Plan of care discussed with the patient in detail, he voiced understanding. Full code Admission Exam Per Admitting Provider GENERAL: Alert and oriented x3. NAD, on RA. HEENT: No pallor, no icterus. Pupils equal, round and reactive to light. Oral mucosa moist. NECK: No JVD, no neck masses. HEART: S1 and S2 heard. Regular rate and rhythm. No murmur, no gallop. RESPIRATORY SYSTEM: Normal AP diameter. No accessory muscle use. No wheezing, no crackles. ABDOMEN: Soft, bowel sounds present, nontender, no distention. CENTRAL NERVOUS SYSTEM: No facial droop. Speech is clear. Obeys simple commands. Moves extremities. EXTREMITIES: No edema, no erythema seen. Discharge Exam General- oriented x 3, not in distress, speaks in sentences with no effort or accessory muscle use Eyes- anicteric Neck- no JVD Lungs- clear breath sounds bilaterally, no rales/wheezes Heart- normal rate, regular rhythm; no murmurs Abdomen- normal bowel sounds, nondistended, soft, nontender Extremities- no pretibial edema, no calf tenderness Neuro- alert, oriented x 3; no gross focal neurologic deficits Skin- warm & dry Updated Medication List Medication Instructions Recorded Confirmed Type buspirone 15 mg tablet 15 mg PO TID 03/01/25 03/01/25 History clonidine HCl 0.1 mg tablet 0.1 mg PO TID PRN Anxiety 03/01/25 03/01/25 History fluticasone fur. 100 mcg-umeclid 1 inh inhalation DAILY 03/01/25 03/01/25 History 62.5 mcg-vilant 25 mcg inhalat.powder (Trelegy Ellipta) gabapentin 300 mg capsule 300 mg PO TID 03/01/25 03/01/25 History hydroxyzine pamoate 50 mg capsule 50 mg PO TID PRN Anxiety 03/01/25 03/01/25 History insulin glargine 100 unit/mL 8 unit subcut BID 03/01/25 03/01/25 History subcutaneous solution (Lantus U-100 Insulin) [id number]-[id number]-[id number] 1 cap PO QID 03/01/25 03/01/25 History 36,000-114,000-180,000 unit capsule,delay rel (Creon) metformin 500 mg tablet,extended 500 mg PO TID 03/01/25 03/01/25 History release 24 hr multivitamin 1 tab PO DAILY 03/01/25 03/01/25 History omeprazole 40 mg capsule,delayed 40 mg PO DAILY 03/01/25 03/01/25 History release quetiapine 50 mg tablet (Seroquel) 50 mg PO HS 03/01/25 03/01/25 History sertraline 100 mg tablet 100 mg PO DAILY 03/01/25 03/01/25 History insulin aspart U-100 100 unit/mL 1 sliding scale dose subcut 03/03/25 03/01/25 Rx subcutaneous solution (Novolog TIDWMEAL #0 mL U-100 Insulin aspart) Hospital Stay Data Consultations 03/01/25 17:18 ED Decision to Admit Stat 03/01/25 18:45 Consult Pulmonology Routine Diagnostic Imagining Performed Laboratory Results WBC 7.48 K/ul (4.8-10.8) 03/02/25 06:44 RBC 4.29 M/uL (4.70-6.10) L 03/02/25 06:44 Hgb 13.9 g/dl (14.0-18.0) L 03/02/25 06:44 Hct 39.6 % (42.0-52.0) L 03/02/25 06:44 MCV 92.3 fL (80.0-100.0) 03/02/25 06:44 MCH 32.4 pg (25.0-34.0) 03/02/25 06:44 MCHC 35.1 g/dL (32.0-36.0) 03/02/25 06:44 RDW Std Deviation 44.7 fL (36.4-46.3) 03/02/25 06:44 RDW Coeff of Waqas 13.1 % (11.5-14.5) 03/02/25 06:44 Plt Count 171 K/uL (130-400) 03/02/25 06:44 MPV 11.6 fL (9.4-12.4) 03/02/25 06:44 Immature Gran % (Auto) 0.7 % 03/01/25 13:47 Neut % (Auto) 67.6 % 03/01/25 13:47 Lymph % (Auto) 19.1 % 03/01/25 13:47 Izard % (Auto) 7.5 % 03/01/25 13:47 Eos % (Auto) 4.5 % 03/01/25 13:47 Baso % (Auto) 0.6 % 03/01/25 13:47 Neut # (Auto) 4.68 K/uL (1.40-6.50) 03/01/25 13:47 Lymph # (Auto) 1.32 K/uL (1.20-3.40) 03/01/25 13:47 Izard # (Auto) 0.52 K/uL (0.11-0.59) 03/01/25 13:47 Eos # (Auto) 0.31 K/uL (0.00-0.50) 03/01/25 13:47 Baso # (Auto) 0.04 K/uL (0.00-0.20) 03/01/25 13:47 Immature Gran # (Auto) 0.05 K/uL (0.01-0.20) 03/01/25 13:47 ESR 7 mm/hr (0-20) 03/02/25 06:44 Sodium 138 mmol/L (136-145) 03/02/25 06:44 Potassium 4.0 mmol/L (3.5-5.1) 03/02/25 06:44 Chloride 105 mmol/L (98-107) 03/02/25 06:44 Carbon Dioxide 26 mmol/L (21-32) 03/02/25 06:44 Anion Gap 7 (3-11) 03/02/25 06:44 BUN 11 mg/dl (6-23) 03/02/25 06:44 Creatinine 0.99 mg/dl (0.6-1.4) 03/03/25 04:14 Est Cr Clr Drug Dosing 78.7 ml/min 03/03/25 04:14 eGFR 88.30 03/03/25 04:14 BUN/Creatinine Ratio 13.6 (10-20) 03/02/25 06:44 Glucose 166 mg/dl (70-99(Fasting)) H 03/02/25 06:44 POC Glucose 233 mg/dl (70-99) H 03/03/25 11:35 Estimat Average Glucose 232 mg/dl 03/02/25 06:44 Hemoglobin A1c 9.7 % (4.5-5.6) H 03/02/25 06:44 Calcium 8.8 mg/dl (8.6-10.3) 03/02/25 06:44 Phosphorus 3.9 mg/dl (2.5-4.9) 03/02/25 06:44 Magnesium 2.0 mg/dl (1.7-2.4) 03/02/25 06:44 Total Bilirubin 0.3 mg/dl (0.2-1.0) 03/01/25 13:47 AST 20 U/L (13-39) 03/01/25 13:47 ALT 21 U/L (7-52) 03/01/25 13:47 Alkaline Phosphatase 64 U/L (34-104) 03/01/25 13:47 Total Creatine Kinase 133 U/L (30-223) 03/01/25 13:47 Troponin I High Sens 3.0 pg/ml (0-20) 03/01/25 13:47 C-Reactive Protein < 0.50 mg/dl (0-0.5) 03/02/25 06:44 Total Protein 6.8 gm/dl (6.0-8.3) 03/01/25 13:47 Albumin 4.2 gm/dl (3.4-5.0) 03/01/25 13:47 Globulin 2.6 gm/dl (2.5-4.0) 03/01/25 13:47 Albumin/Globulin Ratio 1.6 (0.9-2) 03/01/25 13:47 TSH 1.383 uIu/ml (0.300-4.500) 03/01/25 13:47 Urine Color Yellow 03/01/25 14:58 Urine Appearance Clear (Clear) 03/01/25 14:58 Urine pH 5.5 (4.5-7.5) 03/01/25 14:58 Ur Specific Crowder 1.020 (1.000-1.030) 03/01/25 14:58 Urine Protein Negative (Negative) 03/01/25 14:58 Urine Glucose (UA) 3+ (Negative) H 03/01/25 14:58 Urine Ketones Negative (Negative) 03/01/25 14:58 Urine Blood Negative (Negative) 03/01/25 14:58 Urine Nitrite Negative (Negative) 03/01/25 14:58 Urine Bilirubin Negative (Negative) 03/01/25 14:58 Urine Urobilinogen Negative (Negative) 03/01/25 14:58 Ur Leukocyte Esterase Negative (Negative) 03/01/25 14:58 Urine Comment 03/01/25 14:58 Nasal Screen MRSA (PCR) Negative (Negative) 03/02/25 05:35 Random Vancomycin 11.0 mcg/ml (10-20) 03/03/25 04:14 TB Test (QFT) Gold Plus NEGATIVE (Negative) 03/02/25 11:08 TB Test (QFT) Nil 0.049 IU/mL 03/02/25 11:08 TB Test (QFT) Mitogen 10.000 IU/mL 03/02/25 11:08 TB Test (QFT) Ag 1 0.050 IU/mL 03/02/25 11:08 TB Test (QFT) Ag 2 0.080 IU/mL 03/02/25 11:08 Impressions Chest X-Ray 03/01/25 13:40 XR chest 1V portable CLINICAL HISTORY: weakness COMPARISON STUDY: No previous studies for comparison. FINDINGS: Lung volumes are normal. No pneumothorax or pleural effusion is present. There is no evidence for pulmonary edema. Linear left basilar density favors atelectasis. Asymmetric right apical subpleural opacity is present. Cardiac size is normal. Mediastinal contours are normal. Right humeral internal fixation is partially imaged. IMPRESSION: Asymmetric right apical subpleural opacity. This may represent pneumonia or scarring. However, a chest CT is recommended to exclude a pulmonary lesion. ACT 112: Positive. There are findings on this exam that require communication between the performing entity and the patient following Patient Test Result Information Act ([place] Act 112) guidelines. Electronically signed by: Chris Thomas M.D. 03/01/2025 2:[address] 03/01/25 14:46 Exam: CT chest diagnostic with contrast. Reason for exam: Right upper lobe mass. Previous studies: None. FINDINGS: No previous studies are available for comparison. There is a cavitating peripheral process in the apical segment right upper lobe extending near to the right lateral and posterior pleural surface. The multilocular cavitation is present centrally in this lesion. The broadest diameter is at the pleural base measuring approximately 5.1 cm diameter. Underlying emphysematous COPD is present. [id number] linear atelectasis/fibrosis are seen in both lower lobes. No active pleural effusion. Pneumothorax is seen. No suspicious abnormal hilar or mediastinal mass or abnormal adenopathy is seen. No significant aneurysm or dissection seen. Mild coronary artery calcifications are present. No acute bony process is seen. IMPRESSION: 1. Suspicious multilocular cavitating pleural-based process in the right lung apex. Unfortunately no previous studies available to evaluate the stability of this lesion. It could indicate cavitary malignant neoplasm. The possibility of cavitating granulomatous disease/tuberculosis lung disease. He is considered as well. Inflammatory or autoimmune cavitating disease is considered but is felt less likely. 2. Definitive diagnosis with pulmonary medicine follow-up and consideration for biopsy is recommended. PET/CT will also be anticoagulated to evaluate the metabolic activity within the lesion. 3. Emphysematous COPD. Electronically signed by Serafin Umanzor 03-01-2025 4:25 PM 03/01/25 14:46 CT chest diagnostic w con Stat Pending Results Patient Have Any Pending Studies at Discharge: Yes Discharge Instructions Given to Patient (Per Discharging Provider) LOOSEN INSULIN ASPART SLIDING SCALE TO PREVENT HYPOGLYCEMIA. --Goal BSG Range: Low 120_mg/dL, High 160mg/dL --Correction Factor: 30_mg/dL/unit --Carbohydrate ratio = 12 g/unit --BSGs ACHS if eating, q6h if npo MONITOR BLOOD GLUCOSE CLOSELY, AT LEAST 3X A DAY. FOLLOW UP WITH SALES APPRENTICE DR. ROSANGELA CELESTE IN 1 WEEK TO DISCUSS BRONCHOSCOPY AND REPEAT CT CHEST IN 4 WEEKS. IT IS VERY IMPORTANT TO FOLLOW UP WITH SALES APPRENTICE/LUNG SPECIALIST FOR CONTINUED WORK UP FOR YOUR LUNG LESION TO ENSURE THIS IS NOT CANCEROUS. PLEASE CALL YOUR PRIMARY CARE PHYSICIAN OR RETURN TO THE ER IF WITH WORSENING OF SYMPTOMS, INCLUDING COUGH, FEVER/CHILLS, SHORTNESS OF BREATH, CHEST PAIN, ETC FOLLOW UP WITH PRIMARY CARE PHYSICIAN IN 1 WEEK. FOLLOW UP WITH PULMONOLOGY IN 1 WEEK. Total Time Total Time Spent Total Time Spent (In Minutes): 50 minutes
== END 2025-03-03 16:55 | disposition alcohol treatment (31) | DRG 637 ==
LOC: ED 13:34 → SUATTDRO 18:50 → 2S 18:50 → INTOOBSV 18:50 → 2S 21:33